=== PATIENT | female | born 1970 | race American Indian/Alaskan Native ===

== ENCOUNTER 2019-11-15 07:54 | Emergency (ER) | payer SELFPAY ==
[2019-11-15 08:33] LABS: Basophils # (Auto) 0.1 K/mm3 (0.0-0.1); Basophils % (Auto) 0.7 % (0.0-1.8); Eosinophils # (Auto) 0.2 K/mm3 (0.0-0.4); Eosinophils % (Auto) 2.3 % (0.0-4.3); Hemoglobin 12.5 gm/dl (10.1-14.3); Lymphocytes # (Auto) 2.6 K/mm3 (1.2-5.4); Lymphocytes % (Auto) 31.1 % (13.4-35.0); Mean Corpuscular HGB Conc 32 % (30-34); Mean Corpuscular Volume 79 fl (79-97); Monocytes # (Auto) 0.5 K/mm3 (0.0-0.8); Monocytes % (Auto) 5.8 % (0.0-7.3); Platelet Count 287 K/mm3 (140-440); Red Blood Count 4.95 M/mm3 (3.65-5.03); Red Cell Distribution Width 17.4 % (13.2-15.2)
--- NOTE | 2019-11-15 08:50 | Emergency Department Report ---
HPI - General Chief Complaint: Chest Pain Time Seen by Provider: 11/15/19 08:26 - [facility] HPI: Room 7 The patient is a 48-year-old female present with a chief complaint of chest pain and shortness of breath. The patient states for the past 3 days she has had intermittent substernal chest pressure that comes on with exertion. Patient also mentions dyspnea on exertion. Patient states she becomes diaphoretic when her chest pain returns. Patient denies nausea or vomiting. Patient states she feels more chest pain when lying on her right side than when lying on her left side. Patient also midst of a cough has been occasionally productive of clear sputum for 2 weeks. Patient currently denies chest pain. Patient denies history of fever. The patient states her last stress test occurred 1.5 years ago but she's never had a cardiac catheterization. Patient denies bright red blood per rectum ED Past Medical Hx - Past Medical History Previous Medical History?: Yes Hx Hypertension: Yes Hx GERD: Yes Additional medical history: anemia. fibroids - Surgical History Past Surgical History?: Yes Additional Surgical History: Tonsillectomy - Family History Family history: no significant - Social History Smoking Status: Never Smoker Substance Use Type: None - Medications Home Medications: Home Medications Medication Instructions Recorded Confirmed Last Taken Type cloNIDine [Catapres] 0.1 mg PO BID 06/02/15 06/02/15 Unknown History ED Review of Systems ROS: Stated complaint: CHEST PAIN/SOB Other details as noted in HPI Constitutional: diaphoresis Eyes: denies: eye pain ENT: denies: throat pain Respiratory: shortness of breath, SOB with exertion Cardiovascular: chest pain, dyspnea on exertion Endocrine: no symptoms reported Gastrointestinal: denies: nausea, vomiting Genitourinary: denies: dysuria Musculoskeletal: denies: back pain Neurological: denies: headache Physical Exam - Physical Exam Vital Signs: Vital Signs 11/15/19 11/15/19 07:54 08:24 Temperature 99.1 F Pulse Rate 101 H 95 H Respiratory 20 19 Rate Blood Pressure 235/148 Blood Pressure 229/148 [Left] O2 Sat by Pulse 99 98 Oximetry Physical Exam: GEN: WD WN female lying on stretcher in NAD HEENT: NCAT, EOMI NECK: trachea midline PULM: CTA bilat. No resp distress noted CV: rrr no m/r/g. No rubs auscultated when patient leaning far forward ABD: s/nt/nd SKIN: no diaphoresis NEURO: GCS 15 MUSCULOSKELETAL: No evidence of acute injury ED Course Vital Signs 11/15/19 11/15/19 07:54 08:24 Temperature 99.1 F Pulse Rate 101 H 95 H Respiratory 20 19 Rate Blood Pressure 235/148 Blood Pressure 229/148 [Left] O2 Sat by Pulse 99 98 Oximetry ED Medical Decision Making - Lab Data Result diagrams: 11/15/19 08:08 11/15/19 08:08 - EKG Data -: EKG Interpreted by Me EKG shows normal: sinus rhythm Rate: normal - EKG Data When compared to previous EKG there are: previous EKG unavailable Interpretation: nonspecific ST-T wave etienne (T wave inversions in leads I, aVL V6) - Radiology Data Radiology results: report reviewed (CT chest), image reviewed (CT chest) CT chest (read by radiologist)-no evidence of PE - Differential Diagnosis Symptomatic anemia, ACS, pericarditis, PE, GERD, hypertensive urgency Critical care attestation.: If time is entered above; I have spent that time in minutes in the direct care o f this critically ill patient, excluding procedure time. ED Disposition Clinical Impression: Chest pain, Hypertensive urgency Disposition: 09 OP ADMIT IP TO THIS HOSP Is pt being admited?: Yes Does the pt Need Aspirin: Yes Condition: Fair Instructions: Chest Pain (ED) Referrals: PRIMARY CARE,MD [Primary Care Provider] - 3-5 Days Time of Disposition: 12:02 (Hospitalist paged (Dr River)) JAME score - Jame Score Age > 65: (0) No Aspirin use within the Past 7 Days: (0) No 3 or more CAD Risk Factors: (0) No 2 or more Angina events in past 24 hrs: (1) Yes Known CAD with more than 50% Stenosis: (0) No Elevated Cardiac Markers: (0) No ST Deviation Greater than 0.5mm: (0) No JAME Score: 1
[2019-11-15 08:55] LABS: BUN/Creatinine Ratio 16; Blood Urea Nitrogen 11 mg/dL (7-17); Calcium 9.7 mg/dL (8.4-10.2); Hemolysis Index 0
[2019-11-15] MEDS: ASPIRIN 325 MG TAB PO ONE (09:00)
[2019-11-15] MEDS: cloNIDine 0.2 MG TAB PO ONE (09:00)
--- NOTE | 2019-11-15 11:52 | Cat Scan Report ---
CT angio chest INDICATION / CLINICAL INFORMATION: Chest pain, shortness of breath. TECHNIQUE: Precontrast bolus timing images were obtained followed by postcontrast axial and reformatted images. 3-plane MIP reconstructions were performed at an independent workstation by the technologist. All CT scans at this location are performed using CT dose reduction for ALARA by means of automated exposure control. COMPARISON: None available. FINDINGS: Pulmonary arterial enhancement is normal. No evidence of pulmonary embolus. Thoracic aortic enhancement is normal with no dissection. Ascending aorta is ectatic measuring 4.5 cm. No mediastinal adenopathy. No acute lung disease. Limited abdominal images and skeletal structures are unremarkable. IMPRESSION: 1. No evidence of pulmonary embolus or acute lung disease. 2. Ectatic ascending thoracic aorta. Signer Name: Jose A Serrano MD Signed: 11/15/2019 11:48 AM Workstation Name: [id number]
--- NOTE | 2019-11-15 13:00 | Event Note ---
Date: 11/15/19 48-year-old female with hypertension, GERD, medication noncompliance presents to ED for evaluation. Patient states that she presents to [facility] ED for evaluation. Patient states that she feels as though her blood pressure has been running high and acknowledges she has been noncompliant with her medication as an outpatient. Patient states that she presented to a local fire station to get her blood pressure checked and was told that her blood pressure was high and that she should be seen and evaluated in the emergency department. Patient presents to the emergency department and found to have systolic blood pressure above 200. Patient treated with antihypertensive therapy with improvement in systolic blood pressure. Patient states that she has experienced nonproductive cough over the last 3 days which elicits chest discomfort. Patient found to have an elevated d-dimer but CTA of the chest was negative. Cardiac enzyme and EKG evaluations were not indicative of ischemia. No EKG changes. Patient denies chest pain at time of my exam. Patient also states that she wanted to get her hemoglobin checked because she has a history of uterine fibroids. At time my exam patient denies fever, chills, chest pain, palpitations, shortness of breath, headache, blurred vision,nausea vomiting diarrhea, prolonged travel/immobility, or recent ill contacts. Patient medically optimized and back to usual state of health. Patient discharged home and instructed to follow-up with primary care physician within 3 to 5 days with blood pressure log taken twice daily. Patient also instructed to follow-up with cardiology within 1 week. No significant findings on physical exam. Patient counseled regarding balanced diet, increase physical activity at discharge as well as outpatient bariatric surgery follow-up. EXAM: GEN: WD WN female lying on stretcher in NAD HEENT: NCAT, EOMI NECK: trachea midline PULM: CTA bilat. No resp distress noted CV: rrr no m/r/g. normal S1//s2, No accessory heart sounds. No rubs auscultated when patient leaning far forward ABD: s/nt/nd SKIN: no diaphoresis NEURO: GCS 15 MUSCULOSKELETAL: No evidence of acute injury
[2019-11-15] MEDS: hydrALAZINE 20 MG/1 ML INJ IV ONE ×2 (13:12→16:23)
[2019-11-15] MEDS: LISINOPRIL 10 MG TAB PO ONE ×2 (13:13→15:00)
[2019-11-15] MEDS: hydrALAZINE 25 MG TAB PO ONE (15:00)
[2019-11-15] MEDS ORDERED: hydrALAZINE 20 MG/1 ML INJ ONE (16:20)
[2019-11-15 16:46] LABS: Amphetamine Screen,Urine PRESUMPTIVE NEGATIVE; Benzodiazepines Screen,Urine PRESUMPTIVE NEGATIVE; Cannabinoid Screen,Urine PRESUMPTIVE NEGATIVE; Cocaine Screen,Urine PRESUMPTIVE NEGATIVE; Methadone Screen,Urine PRESUMPTIVE NEGATIVE; Opiate Screen,Urine PRESUMPTIVE NEGATIVE
[2019-11-15 16:51] VITALS: BP 171/94
--- NOTE | 2019-11-15 17:05 | Cat Scan Report ---
CT head/brain wo con INDICATION: headache. TECHNIQUE: Routine CT head without contrast. All CT scans at this location are performed using CT dos e reduction for ALARA by means of automated exposure control. COMPARISON: None. FINDINGS: BRAIN / INTRACRANIAL CONTENTS: No acute hemorrhage, mass effect, midline shift, or hydrocephalus. No appreciable acute large territorial or lacunar infarct. No chronic infarct or focal atrophy. Normal b rain volume and ventricular/sulcal size for age. ORBITS: No significant abnormality of visualized orbits. SINUSES / MASTOIDS: No significant abnormality of visualized sinuses and mastoid air cells. ADDITIONAL FINDINGS: None. IMPRESSION: 1. No acute intracranial abnormality. Signer Name: Ollie Downing MD Signed: 11/15/2019 5:00 PM Workstation Name: [id number]
== END 2019-11-15 17:06 | disposition admitted as inpatient to this hospital (09) ==
LOC: ED 07:54
DX: I16.0 Hypertensive urgency (principal); K21.9 Gastro-esophageal reflux disease without esophagitis; Z98.890 Other specified postprocedural states; Z79.899 Other long term (current) drug therapy
CPT/HCPCS: 36415; 70450; 71275; 80048; 80307; 83880; 84484; 84703; 85025; 85379; 93005; 93010; 96374; 96376; 99285; J0360; Q9967